=== PATIENT | male | born 1940 | race Caucasian/White ===

== ENCOUNTER → 2016-07-02 | Outpatient (CLI) | payer OTHER | LOC: FIMAGING 14:31 → EDSTATUS 14:32 → FIMAGING 14:32 | DX: R05 Cough (principal); Z87.891 Personal history of nicotine dependence ==

== ENCOUNTER → 2016-08-01 | Outpatient (CLI) | payer OTHER | LOC: BHFA 09:30 | PROVIDERS: ATTEND Internal Medicine Cardiovascular Disease | DX: I48.91 Unspecified atrial fibrillation (principal); I10 Essential (primary) hypertension; R06.02 Shortness of breath | CPT/HCPCS: 78452; 93017; A9500; J2785 ==

== ENCOUNTER → 2016-08-22 | Outpatient (CLI) | payer OTHER | LOC: BHFA 10:00 | PROVIDERS: ATTEND Internal Medicine Cardiovascular Disease | DX: I50.9 Heart failure, unspecified (principal); I48.91 Unspecified atrial fibrillation; N40.1 Benign prostatic hyperplasia with lower urinary tract symptoms; R33.9 Retention of urine, unspecified; R35.1 Nocturia; C61 Malignant neoplasm of prostate ==

== ENCOUNTER → 2016-11-06 | Outpatient (CLI) | payer OTHER | LOC: BHFA 13:45 | PROVIDERS: ATTEND Internal Medicine Cardiovascular Disease | DX: I48.1 Persistent atrial fibrillation (principal); I50.33 Acute on chronic diastolic (congestive) heart failure ==

== ENCOUNTER 2017-03-11 14:47 | Inpatient (IN) | payer OTHER ==
[2017-03-11 16:22] LABS: PLATELET COUNT 170 10^3/uL (150-400)
[2017-03-11 16:31] LABS: INR 1.19 (0.83-1.16); PROTIME(PATIENT) 15.1 SEC (12.0-15.0)
--- NOTE | 2017-03-11 16:32 | CPEKG ---
Heart Rate: 59 RR Interval: 1017 QRSD Interval: 150 QT Interval: 492 QTC Interval: 488 QRS [place]: 50 T Wave [place]: 225 EKG Severity - ABNORMAL ECG - EKG Impression: ATRIAL FIBRILLATION, V-RATE 42-74 EKG Impression: RIGHT BUNDLE BRANCH BLOCK EKG Impression: ST DEPRESSION, CONSIDER ISCHEMIA, ANT-LAT LDS Electronically Signed By: Clarence Stern 12-Mar-2017 11:04:48
--- NOTE | 2017-03-11 16:32 | CPEKG ---
Heart Rate: 59 RR Interval: 1017 QRSD Interval: 150 QT Interval: 492 QTC Interval: 488 QRS [place]: 50 T Wave [place]: 225 EKG Severity - ABNORMAL ECG - EKG Impression: ATRIAL FIBRILLATION, V-RATE 42-74 EKG Impression: RIGHT BUNDLE BRANCH BLOCK EKG Impression: ST DEPRESSION, CONSIDER ISCHEMIA, ANT-LAT LDS Electronically Signed By: Clarence Stern 12-Mar-2017 11:04:48
[2017-03-11] MEDS ORDERED: DOFETILIDE 0.25 MG CAP PO ONE (17:00)
[2017-03-11] MEDS ORDERED: POTASSIUM CL 10 MEQ TAB PO ONE (17:00)
--- NOTE | 2017-03-11 19:04 | PDCARPN ---
Cardiology Progress Note Chief Complaint: Atrial Fibrillation Assessment/Plan: Assessment: ATRIAL FIBRILLATION He is admitted to the hospital for Monitored Loading of Tikosyn 500mcg BID. He had not Tolerated Sotolol. Admit For services of Dudley Reddy MD. Will stop HCTZ as is contraindicated with Tikosyn. He is generally feeling well at time of admission. Chronic Diastolic CHF NYHA class 2. His legs are 1+ edema bilateral. He denies SOB. He is followed by Dr Juanito Galindo MD. Plan: Will initiate Tikosyn 500 mcg BID with Initial EKG, then EKG 2 hrs after each dose. He Will start with dosing a 5p, 2A, and then regular dosing at 9am & 9PM. EKG reports are to be called to Dr Reddy. Will plan for DCCV on 03/13/17. 03/11/17 19:04 Subjective: He is feeling well with no chest pain, SOB, dizziness, or lightheadedness. His legs are 1+ edematous. He is compliantly taking his medications. He is hopefull the Tikosyn will be well tolerated and beneficial. Reviewed/Discussed With: family, multidisciplinary team, other (Dr Reddy) Time Spent With Patient: .30 min Objective: Vital Signs (8 Hrs) Temp Pulse Resp BP Pulse Ox 03/11/17 16:05 37.0 C 82 19 124/89 H 95 Intake/Output (24 Hrs) 03/10/17 03/11/17 03/12/17 05:59 05:59 05:59 Intake Total 250 Balance 250 Intake: Oral (ml) 250 Other: Weight 98.203 kg Result Diagrams: 03/11/17 16:15 03/11/17 16:15 - Physical Exam Cardiovascular: no murmurs, no rubs, no gallops, irregularly irregular Peripheral Pulses: 1+: dorsalis-pedis (R), dorsalis-pedis (L) Respiratory: clear to auscultate bilat, no crackles, no wheezes Skin: no rashes Neurologic: AAOx3 Psychiatric: cooperative, interactive ICD10 Worksheet Patient Problems: Problems Problem Status Onset Atrial fibrillation and flutter Acute
--- NOTE | 2017-03-11 19:28 | CPEKG ---
Heart Rate: 54 RR Interval: 1111 QRSD Interval: 122 QT Interval: 476 QTC Interval: 452 QRS [place]: 46 T Wave [place]: 210 EKG Severity - ABNORMAL ECG - EKG Impression: ATRIAL FIBRILLATION EKG Impression: RIGHT BUNDLE BRANCH BLOCK EKG Impression: BORDERLINE ST DEPRESSION, LATERAL LEADS Electronically Signed By: Clarence Stern 12-Mar-2017 11:04:14
[2017-03-11] MEDS: LOSARTAN POTASSIUM 50 MG TAB PO SCH (22:00)
[2017-03-11] MEDS: FINASTERIDE 5 MG TAB PO SCH (22:00)
[2017-03-11] MEDS: APIXABAN 5 MG TAB PO SCH (22:00)
[2017-03-11] MEDS: PRAVASTATIN SODIUM 40 MG TAB PO SCH (22:00)
[2017-03-11] MEDS: POTASSIUM CL 20 MEQ TAB PO SCH (22:00)
[2017-03-11] MEDS: TAMSULOSIN HCL 0.4 MG CAP PO SCH (22:23)
[2017-03-12] MEDS ORDERED: DOFETILIDE 0.25 MG CAP PO ONE (02:00)
--- NOTE | 2017-03-12 04:45 | CPEKG ---
Heart Rate: 51 RR Interval: 1176 P-R Interval: 216 QRSD Interval: 124 QT Interval: 596 QTC Interval: 550 P [place]: 51 QRS [place]: 40 T Wave [place]: 177 EKG Severity - ABNORMAL ECG - EKG Impression: SINUS RHYTHM EKG Impression: RIGHT BUNDLE BRANCH BLOCK EKG Impression: BORDERLINE ST DEPRESSION, LATERAL LEADS Electronically Signed By: Clarence Stern 12-Mar-2017 11:04:07
--- NOTE | 2017-03-12 04:45 | CPEKG ---
Heart Rate: 51 RR Interval: 1176 P-R Interval: 216 QRSD Interval: 124 QT Interval: 596 QTC Interval: 550 P [place]: 51 QRS [place]: 40 T Wave [place]: 177 EKG Severity - ABNORMAL ECG - EKG Impression: SINUS RHYTHM EKG Impression: RIGHT BUNDLE BRANCH BLOCK EKG Impression: BORDERLINE ST DEPRESSION, LATERAL LEADS Electronically Signed By: Clarence Stern 12-Mar-2017 11:04:07
--- NOTE | 2017-03-12 04:45 | CPEKG ---
Heart Rate: 51 RR Interval: 1176 P-R Interval: 216 QRSD Interval: 124 QT Interval: 596 QTC Interval: 550 P [place]: 51 QRS [place]: 40 T Wave [place]: 177 EKG Severity - ABNORMAL ECG - EKG Impression: SINUS RHYTHM EKG Impression: RIGHT BUNDLE BRANCH BLOCK EKG Impression: BORDERLINE ST DEPRESSION, LATERAL LEADS Electronically Signed By: Clarence Stern 12-Mar-2017 11:04:07
[2017-03-12 05:25] LABS: INR 1.37 (0.83-1.16); PROTIME(PATIENT) 16.9 SEC (12.0-15.0)
[2017-03-12] MEDS: POTASSIUM CL 20 MEQ TAB PO SCH ×3 (06:10→20:58)
[2017-03-12] MEDS ORDERED: TORSEMIDE 20 MG TAB PO SCH (08:30)
[2017-03-12] MEDS ORDERED: DOFETILIDE 0.25 MG CAP PO SCH (09:00)
[2017-03-12] MEDS ORDERED: TAMSULOSIN HCL 0.4 MG CAP PO SCH (09:00)
[2017-03-12] MEDS ORDERED: POTASSIUM CL 20 MEQ TAB PO ONE (09:05)
[2017-03-12] MEDS: SPIRONOLACTONE 25 MG TAB PO SCH (09:28)
[2017-03-12] MEDS: CHOLECALCIFEROL VIT D3 1,000 UNITS TAB PO SCH (09:28)
[2017-03-12] MEDS: DOFETILIDE 0.25 MG CAP PO SCH ×2 (09:28→20:55)
[2017-03-12] MEDS: APIXABAN 5 MG TAB PO SCH ×2 (09:28→20:56)
--- NOTE | 2017-03-12 11:38 | CPEKG ---
Heart Rate: 49 RR Interval: 1224 P-R Interval: 148 QRSD Interval: 114 QT Interval: 564 QTC Interval: 510 P [place]: 48 QRS [place]: 55 T Wave [place]: 208 EKG Severity - ABNORMAL ECG - EKG Impression: SINUS BRADYCARDIA EKG Impression: INCOMPLETE RIGHT BUNDLE BRANCH BLOCK EKG Impression: BORDERLINE ST DEPRESSION, LATERAL LEADS Electronically Signed By: Juanito Galindo 13-Mar-2017 08:49:48
--- NOTE | 2017-03-12 11:38 | CPEKG ---
Heart Rate: 49 RR Interval: 1224 P-R Interval: 148 QRSD Interval: 114 QT Interval: 564 QTC Interval: 510 P [place]: 48 QRS [place]: 55 T Wave [place]: 208 EKG Severity - ABNORMAL ECG - EKG Impression: SINUS BRADYCARDIA EKG Impression: INCOMPLETE RIGHT BUNDLE BRANCH BLOCK EKG Impression: BORDERLINE ST DEPRESSION, LATERAL LEADS Electronically Signed By: Juanito Galindo 13-Mar-2017 08:49:48
--- NOTE | 2017-03-12 15:00 | ASMTCMCOM ---
CM Note CM Note Notes: 03/12/2017 Case Management Note Met w/pt and . Pt is retired, still drives and reports active lifestyle. Hobbies include golfing and walking. He is building a house in [place] with his son. No case management d/c needs identified. Plan for pt to d/c home independent when medically stable with follow up as directed. Date Signed: 03/12/2017 03:00 PM Electronically Signed By:Cara Foster RN
--- NOTE | 2017-03-12 15:00 | ASMTCMCOM ---
CM Note CM Note Notes: 03/12/2017 Case Management Note Met w/pt and . Pt is retired, still drives and reports active lifestyle. Hobbies include golfing and walking. He is building a house in [place] with his son. No case management d/c needs identified. Plan for pt to d/c home independent when medically stable with follow up as directed. Date Signed: 03/12/2017 03:00 PM Electronically Signed By:Cara Foster RN
[2017-03-12] MEDS: LOSARTAN POTASSIUM 50 MG TAB PO SCH (20:55)
[2017-03-12] MEDS: PRAVASTATIN SODIUM 40 MG TAB PO SCH (20:56)
[2017-03-12] MEDS: TAMSULOSIN HCL 0.4 MG CAP PO SCH (20:57)
[2017-03-12] MEDS: FINASTERIDE 5 MG TAB PO SCH (20:57)
[2017-03-13] MEDS: POTASSIUM CL 20 MEQ TAB PO SCH (06:22)
--- NOTE | 2017-03-13 08:41 | CPEKG ---
Heart Rate: 51 RR Interval: 1176 P-R Interval: 228 QRSD Interval: 114 QT Interval: 476 QTC Interval: 439 P [place]: 30 QRS [place]: -13 T Wave [place]: 164 EKG Severity - ABNORMAL ECG - EKG Impression: SINUS RHYTHM EKG Impression: FIRST DEGREE AV BLOCK EKG Impression: NONSPECIFIC INTRAVENTRICULAR CONDUCTION DELAY EKG Impression: MINIMAL ST DEPRESSION, ANTEROLATERAL LEADS Electronically Signed By: Juanito Galindo 13-Mar-2017 08:49:40
--- NOTE | 2017-03-13 08:41 | CPEKG ---
Heart Rate: 51 RR Interval: 1176 P-R Interval: 228 QRSD Interval: 114 QT Interval: 476 QTC Interval: 439 P [place]: 30 QRS [place]: -13 T Wave [place]: 164 EKG Severity - ABNORMAL ECG - EKG Impression: SINUS RHYTHM EKG Impression: FIRST DEGREE AV BLOCK EKG Impression: NONSPECIFIC INTRAVENTRICULAR CONDUCTION DELAY EKG Impression: MINIMAL ST DEPRESSION, ANTEROLATERAL LEADS Electronically Signed By: Juantio Galindo 13-Mar-2017 08:49:40
[2017-03-13] MEDS ORDERED: DOFETILIDE 0.25 MG CAP PO SCH (09:00)
[2017-03-13] MEDS ORDERED: TORSEMIDE 20 MG TAB PO SCH (09:00)
[2017-03-13] MEDS: APIXABAN 5 MG TAB PO SCH (09:22)
[2017-03-13] MEDS: CHOLECALCIFEROL VIT D3 1,000 UNITS TAB PO SCH (09:23)
[2017-03-13] MEDS: SPIRONOLACTONE 25 MG TAB PO SCH (09:23)
[2017-03-13] MEDS ORDERED: POTASSIUM CL 20 MEQ TAB PO ONE (10:34)
--- NOTE | 2017-03-13 11:24 | CPEKG ---
Heart Rate: 48 RR Interval: 1250 P-R Interval: 220 QRSD Interval: 118 QT Interval: 512 QTC Interval: 458 P [place]: 54 QRS [place]: 76 T Wave [place]: 241 EKG Severity - ABNORMAL ECG - EKG Impression: SINUS BRADYCARDIA EKG Impression: NONSPECIFIC INTRAVENTRICULAR CONDUCTION DELAY EKG Impression: BORDERLINE ST DEPRESSION, DIFFUSE LEADS EKG Impression: prolonged QTc interval. Electronically Signed By: Juanito Galindo 13-Mar-2017 17:25:12
[2017-03-13 12:15] VITALS: BP 132/72; PULSE 50; RESP 22; TEMP 97.5; O2SAT 95
--- NOTE | 2017-03-13 15:53 | ASDISCHSUM ---
Discharge Information Plan Status:Home with No Needs Medically Cleared to Leave:03/12/2017 Discharge Date:03/13/2017 12:39 PM D/C Disposition: ADT D/C Disposition:Home, Routine, Self-Care Projected Discharge Date:03/13/2017 12:00 AM Transportation at D/C: Discharge Delay Reason: Follow-Up Date:03/13/2017 12:00 AM Discharge Slot: Final Diagnosis: Placement Information Patient Contact Information Contact Name:ELINA Relationship: Address:[address] City:[place] Alternate Phone: State/Zip Code:[place] [address] Email: Financial Information Financial Class: Primary Plan Desc:MEDICARE INPATIENT Primary Plan Number:[id number] Secondary Plan Desc:[facility] Secondary Plan Number:[id number] Assessment Information [facility] CM Progress Note CM Note CM Note Notes: 03/12/2017 Case Management Note Met w/pt and . Pt is retired, still drives and reports active lifestyle. Hobbies include golfing and walking. He is building a house in [place] with his son. No case management d/c needs identified. Plan for pt to d/c home independent when medically stable with follow up as directed. Date Signed: 03/12/2017 03:00 PM Electronically Signed By:Cara Foster RN Intervention Information
--- NOTE | 2017-03-13 15:53 | ASDISCHSUM ---
Discharge Information Plan Status:Home with No Needs Medically Cleared to Leave:03/12/2017 Discharge Date:03/13/2017 12:39 PM D/C Disposition: ADT D/C Disposition:Home, Routine, Self-Care Projected Discharge Date:03/13/2017 12:00 AM Transportation at D/C: Discharge Delay Reason: Follow-Up Date:03/13/2017 12:00 AM Discharge Slot: Final Diagnosis: Placement Information Patient Contact Information Contact Name:ELINA Relationship: Address:[address] City:[place] Alternate Phone: State/Zip Code:[place] [address] Email: Financial Information Financial Class: Primary Plan Desc:MEDICARE INPATIENT Primary Plan Number:[id number] Secondary Plan Desc:[facility] Secondary Plan Number:[id number] Assessment Information [facility] CM Progress Note CM Note CM Note Notes: 03/12/2017 Case Management Note Met w/pt and . Pt is retired, still drives and reports active lifestyle. Hobbies include golfing and walking. He is building a house in [place] with his son. No case management d/c needs identified. Plan for pt to d/c home independent when medically stable with follow up as directed. Date Signed: 03/12/2017 03:00 PM Electronically Signed By:Cara Foster RN Intervention Information
--- NOTE | 2017-03-13 15:53 | ASDISCHSUM ---
Discharge Information Plan Status:Home with No Needs Medically Cleared to Leave:03/12/2017 Discharge Date:03/13/2017 12:39 PM D/C Disposition: ADT D/C Disposition:Home, Routine, Self-Care Projected Discharge Date:03/13/2017 12:00 AM Transportation at D/C: Discharge Delay Reason: Follow-Up Date:03/13/2017 12:00 AM Discharge Slot: Final Diagnosis: Placement Information Patient Contact Information Contact Name:ELINA Relationship: Address:[address] City:[place] Alternate Phone: State/Zip Code:[place] [address] Email: Financial Information Financial Class: Primary Plan Desc:MEDICARE INPATIENT Primary Plan Number:[id number] Secondary Plan Desc:[facility] Secondary Plan Number:[id number] Assessment Information [facility] CM Progress Note CM Note CM Note Notes: 03/12/2017 Case Management Note Met w/pt and . Pt is retired, still drives and reports active lifestyle. Hobbies include golfing and walking. He is building a house in [place] with his son. No case management d/c needs identified. Plan for pt to d/c home independent when medically stable with follow up as directed. Date Signed: 03/12/2017 03:00 PM Electronically Signed By:Cara Foster RN Intervention Information
[2017-03-13] MEDS ORDERED: DOFETILIDE 0.125 MG CAP PO SCH ×2 (21:00)
--- NOTE | 2017-03-14 14:36 | GDS ---
[f rep st] DISCHARGE SUMMARY ADMIT DIAGNOSIS: 1. Atrial fibrillation. 2. Planned Tikosyn loading. DISCHARGE DIAGNOSIS: 1. Successful Tikosyn load. 2. Atrial fibrillation, resolved. COURSE OF HOSPITALIZATION: This gentleman was admitted for Tikosyn loading for atrial fibrillation. Dr. Reddy closely followed his EKGs. He was seen by Dr. Reddy throughout his stay. He did require do se changes and successfully has tolerated a lower Tikosyn dose. He was given supplemental potassium and his creatinine level did bump up. His diuretic was slightly decreased on day of discharge. He w ill follow up with Dr. Galindo for his congestive heart failure in 1 week. We will have him get labs d one on Friday of next week. Dr. Galindo' office has been notified of the interim lab, due to his potas sium instability and increased creatinine. He is asymptomatic. He has been up ambulating with good tolerance. His lower extremities are 1+ edema, as they were on admission. At this time, he currentl y is stable for discharge. DISCHARGE MEDICATIONS: He will go home on Flomax 0.8 mg daily, Aldactone 25 mg daily, Cozaar 100 mg at bedtime, vitamin D 2000 units daily, Demadex 20 mg daily, Proscar 5 mg at bedtime, Eliquis 5 mg tw ice daily, potassium chloride 20 mEq 3 times daily, pravastatin 40 mg at bedtime, Tikosyn 0.125 mg at evening dose and 0.25 mg a.m. dose. ALLERGIES: He has no known allergies. LABORATORIES: On day of discharge, sodium 141, potassium 4.2, creatinine 1.7 up from 1.5 on admissio n, BUN 38, total bilirubin 2.7, and conjugated bilirubin 2.5. AST 38, ALT 48, alkaline phosphate 70. Of note, additional potassium was given due to 03/12/2017, potassium level 3.2. EXAM ON DAY OF DISCHARGE: VITAL SIGNS: Blood pressure 132/72, heart rate 50, respiratory rate 14. EKG shows a sinus bradycardia. Dr. Reddy did visit with patient, reviewed his EKGs and recommended di scharge. DISCHARGE PLAN: He will follow up with Dr. Galindo in 1 week. At that time, he will have an EKG. Com plete metabolic panel and BNP have been ordered to be drawn Sergio morning, 03/17/2017, and will be s ent to Dr. Galindo, who has been notified. He will see Dr. Galindo in 1 week. Should he have dizziness, lightheadedness, he is to call Dr. Galindo' RN, Jackelin, and we will get him r ight in. He will follow up with Dr. Reddy in 1 month. At this time, he currently is stable for disch arge. /[id number]/MODL
== END 2017-03-13 12:39 | disposition home or self-care (01) | DRG 309 ==
LOC: F2W 15:20
PROVIDERS: ADMIT Internal Medicine Cardiovascular Disease; ATTEND Internal Medicine Cardiovascular Disease
PROC: 3E033RZ Introduction of Antiarrhythmic into Peripheral Vein, Percutaneous Approach (ICD-10-PCS; principal; 2017-03-12)
DX: I48.91 Unspecified atrial fibrillation (principal); I50.32 Chronic diastolic (congestive) heart failure; G47.33 Obstructive sleep apnea (adult) (pediatric); Z87.891 Personal history of nicotine dependence; E66.9 Obesity, unspecified

== ENCOUNTER → 2017-05-21 | Outpatient (CLI) | payer OTHER | LOC: FIMAGING 08:35 | PROVIDERS: ATTEND Internal Medicine Cardiovascular Disease | DX: N18.9 Chronic kidney disease, unspecified (principal) ==

== ENCOUNTER → 2017-09-09 | Outpatient (CLI) | payer OTHER | LOC: BHFA 09:15 | PROVIDERS: ATTEND Internal Medicine Cardiovascular Disease | DX: I48.91 Unspecified atrial fibrillation (principal); I27.20 Pulmonary hypertension, unspecified ==

== ENCOUNTER → 2018-02-18 | Outpatient (CLI) | payer OTHER | LOC: FIMAGING 10:32 | PROVIDERS: ATTEND Internal Medicine Critical Care Medicine | DX: J98.4 Other disorders of lung (principal); J47.9 Bronchiectasis, uncomplicated; I28.8 Other diseases of pulmonary vessels; K80.20 Calculus of gallbladder without cholecystitis without obstruction ==

== ENCOUNTER → 2018-06-19 | Outpatient (CLI) | payer OTHER | LOC: BHFA 10:30 | PROVIDERS: ATTEND Internal Medicine Cardiovascular Disease | DX: I48.91 Unspecified atrial fibrillation (principal); Z79.899 Other long term (current) drug therapy ==

== ENCOUNTER → 2018-07-11 | Outpatient (CLI) | payer OTHER | LOC: FIMAGING 09:14 | PROVIDERS: ATTEND Physical Medicine & Rehabilitation | DX: M48.062 Spinal stenosis, lumbar region with neurogenic claudication (principal); M48.07 Spinal stenosis, lumbosacral region; M46.96 Unspecified inflammatory spondylopathy, lumbar region; M46.97 Unspecified inflammatory spondylopathy, lumbosacral region; M51.26 Other intervertebral disc displacement, lumbar region ==

== ENCOUNTER → 2018-09-09 | Outpatient (CLI) | payer OTHER | LOC: BHFA 10:00 | PROVIDERS: ATTEND Internal Medicine Cardiovascular Disease | DX: I50.9 Heart failure, unspecified (principal); J44.9 Chronic obstructive pulmonary disease, unspecified ==

== ENCOUNTER → 2018-09-14 | Outpatient (CLI) | payer OTHER | LOC: FIMAGING 11:03 | PROVIDERS: ATTEND Neurological Surgery | DX: M54.40 Lumbago with sciatica, unspecified side (principal); M48.062 Spinal stenosis, lumbar region with neurogenic claudication; M47.26 Other spondylosis with radiculopathy, lumbar region ==